=== PATIENT | female | born 1970 | race Caucasian/White ===

== ENCOUNTER 2017-12-17 12:42 | Emergency (ER) | payer SELFPAY ==
[2017-12-17 12:45] VITALS: BP 158/75; PULSE 78; RESP 14; TEMP 36.4; O2SAT 95
--- NOTE | 2017-12-17 13:03 | DI.RAD.S_ITS ---
PROCEDURE: XR ANKLE LT MIN 3V INDICATIONS: Pt in ED waiting room. fall, ++ swelling Left ankle. TECHNIQUE: 3 views of the ankle were acquired. COMPARISON: None. FINDINGS: Bones: No dislocations. Ankle mortise is normally aligned. No suspicious bony lesions. There is a diagonal lateral malleolar fracture through the distal metadiaphyseal junction best seen on the lateral view Soft tissues: No tibiotalar joint effusion. Achilles tendon appears normal. IMPRESSION: A high ankle fracture seen on the lateral view best is present, and a medial or posterior malleolar fracture is not found. The fracture present is only slightly displaced but extends over a craniocaudad length of approximately 5 cm. Dictated by: Kevni Barrios M.D. on 12/17/2017 at 14:17 Approved by: Kevin Barrios M.D. on 12/17/2017 at 14:18
[2017-12-17 13:53] VITALS: PULSE 80
--- NOTE | 2017-12-17 14:02 | ED_ITS ---
HPI - Extremity Injury (Lower) <SHANITA Bliss - Last Filed: 12/17/17 21:41> General Chief Complaint: Extremity Injury, Lower Stated Complaint: left lower leg injury Time Seen by Provider: 12/17/17 14:00 Source: patient Mode of arrival: wheelchair Limitations: no limitations History of Present Illness HPI Narrative: 46-year-old healthy female that is a nonsmoker here for complaint of left ankle pain. She states she was out hiking this morning when she slipped causing her to rolled her left ankle. She states she felt a pop in her left ankle. She states that she has difficulty and weight-bearing after injury due to pain. She denies any other injuries or complaints. Pain is limited to the lateral ankle. She reports having some swelling and bruising to the area. MD complaint: ankle injury Related Data Previous Rx's Medication Instructions Recorded hydrocodone-acetaminophen [Steedman] 1 tab PO Q4-6H PRN #10 tab 12/17/17 Allergies Allergy/AdvReac Type Severity Reaction Status Date / Time No Known Drug Allergies Allergy Verified 12/17/17 13:08 Review of Systems <SHANITA Bliss - Last Filed: 12/17/17 21:41> Constitutional Denies chills, Denies fever(s), Denies lethargy and Denies weakness Eyes Denies change in vision, Denies eye discharge, Denies irritation and Denies loss of vision ENT Ears, Nose, Mouth, and Throat: Denies change in voice, Denies neck pain and Denies sore throat Cardiovascular Denies chest pain, Denies irregular heart rhythm, Denies lightheadedness, Denies palpitations, Denies dyspnea, Denies dyspnea on exertion and Denies orthopnea Respiratory Denies cough, Denies dyspnea, Denies dyspnea on exertion and Denies wheezing Gastrointestinal Gastrointestinal: Denies abdominal pain, Denies change in bowel habits, Denies diarrhea, Denies nausea and Denies vomiting Genitourinary Denies hematuria, Denies flank pain, Denies urinary incontinence and Denies urinary urgency Musculoskeletal Denies neck pain Comments: Left ankle pain Integumentary/Breasts Denies pruritus, Denies erythema, Denies rash and Denies wounds Neurologic Denies confusion, Denies loss of vision and Denies weakness Psychiatric Denies anxiety, Denies confusion, Denies depression, Denies homicidal ideation and Denies suicidal ideation Endocrine Denies palpitations Hematologic/Lymphatic Denies easy bruising Allergic/Immunologic Denies wheezing Exam <SHANITA Bliss - Last Filed: 12/17/17 21:41> Initial Vital Signs Initial Vital Signs: Vital Signs Temperature 97.6 F 12/17/17 12:45 Pulse Rate 78 12/17/17 12:45 Respiratory Rate 14 12/17/17 12:45 Blood Pressure 158/75 H 12/17/17 12:45 Pulse Oximetry 95 12/17/17 12:45 Const General: cooperative and well developed Nutritional Appearance: well nourished Orientation: alert, awake, oriented x3 and not confused HENNV Mouth: oral mucosae normal and moist mucous membranes Eyes Conjunctivae: conjunctivae normal Sclera: sclerae normal Pupils: PERRL EOM: EOM intact bilaterally Neck Neck: normal visual inspection, trachea midline, No lymphadenopathy, No midline deformity and No JVD Lymphatic: No lymphedema Resp Effort & Inspection: normal respiratory effort, able to speak in complete sentences, no respiratory distress and no use of accessory muscles Auscultation: clear to auscultation bilaterally, no rales, no rhonchi and no wheezes Cardio Rate: regular rate Rhythm: regular rhythm Heart Sounds: no click, no gallops, no murmurs and no rubs Pulses: normal peripheral pulses Skin General: no rashes or lesions noted, No jaundice and No petechiae Neuro General: alert, oriented x3 and no focal motor deficits Speech: speech normal Extrem Other: Swelling and ecchymosis to the lateral malleolus of the left ankle. Distal sensation is intact. Distal range of motion is intact. Distal cap refill less than 2 sec. <Radha Sapp DO - Last Filed: 12/18/17 10:51> Initial Vital Signs Initial Vital Signs: Vital Signs Temperature 97.6 F 12/17/17 12:45 Pulse Rate 78 12/17/17 12:45 Respiratory Rate 14 12/17/17 12:45 Blood Pressure 158/75 H 12/17/17 12:45 Pulse Oximetry 95 12/17/17 12:45 Course <SHANITA Bliss - Last Filed: 12/17/17 21:41> Orders Ordered: Discontinued Medications Hydrocodone Bitart/Acetaminophen (Steedman 5/325) 1 tab PO NOW ONE Stop: 12/17/17 14:57 Last Admin: 12/17/17 15:16 Dose: 1 tab Hydrocodone Bitart/Acetaminophen (Vicodin Prepack) 1 bottle MISC SEEINSTR ONE Stop: 12/17/17 18:36 Last Admin: 12/17/17 19:16 Dose: 1 bottle Hydromorphone HCl (Dilaudid) 0.5 mg IV NOW ONE Stop: 12/17/17 14:55 Last Admin: 12/17/17 17:17 Dose: Not Given Vital Signs - 8 hr 12/17/17 13:53 12/17/17 17:33 12/17/17 19:45 Pulse Rate 72 74 Pulse Rate [Left Dorsalis Pedis] 80 Respiratory Rate 18 16 Blood Pressure 117/68 Blood Pressure [Left Arm] 110/72 Pulse Oximetry 100 99 <Radha Sapp DO - Last Filed: 12/18/17 10:51> Orders Ordered: Discontinued Medications Hydrocodone Bitart/Acetaminophen (Steedman 5/325) 1 tab PO NOW ONE Stop: 12/17/17 14:57 Last Admin: 12/17/17 15:16 Dose: 1 tab Hydrocodone Bitart/Acetaminophen (Vicodin Prepack) 1 bottle MISC SEEINSTR ONE Stop: 12/17/17 18:36 Last Admin: 12/17/17 19:16 Dose: 1 bottle Hydromorphone HCl (Dilaudid) 0.5 mg IV NOW ONE Stop: 12/17/17 14:55 Last Admin: 12/17/17 17:17 Dose: Not Given Vital Signs - 8 hr 12/17/17 13:53 12/17/17 17:33 12/17/17 19:45 Pulse Rate 72 74 Pulse Rate [Left Dorsalis Pedis] 80 Respiratory Rate 18 16 Blood Pressure 117/68 Blood Pressure [Left Arm] 110/72 Pulse Oximetry 100 99 MDM - Extremity Injury (Lower) <SHANITA Bliss - Last Filed: 12/17/17 21:41> Imaging Data tib fib: Radiologist's impression: [address] [address] XRay Report Addendum Patient: Laura MotaeMR#: [id number] : 1970Acct:[id number] Age/Sex: 46 / FDate of Service: 12/17/17 Loc: ED Accession Number: [id number] Procedure: XR tibia fibula LT 2V Ordering Provider: Josias Connell ADDENDUM This report includes an Addendum and supersedes previous reports for this exam. PROCEDURE: XR TIBIA FIBULA RT 2V INDICATIONS: high ankle fracture TECHNIQUE: 2 views of the tibia and fibula were acquired. COMPARISON: None. FINDINGS: Bones: No previously undiagnosed fractures or dislocations. No suspicious bony lesions. The diagonal fracture through the distal metadiaphyseal junction of the left fibula is again seen, and no medial malleolar fracture is found but the study definitely allows visualization of a thin posterior malleolar fracture not detected on prior ankle plain film imaging Soft tissues: No suspicious soft tissue calcifications or masses. IMPRESSION: Definite new diagnosis of a thin posterior malleolar fracture involving the distal tibia, in addition to the long diagonal fracture involving the distal fibula. A medial malleolar fracture is not found. Therefore a bimalleolar fracture appears present. Dictated by: Kevin Barrios M.D. on 12/17/2017 at 17:31 Approved by: Kevin Barrios M.D. on 12/17/2017 at 17:33 ADDENDUM: Correction of voice machine operator hop picker error in the impression section. Dictated by: Kevin Barrios M.D. on 12/17/2017 at 17:35 Approved by: Kevin Barrios M.D. on 12/17/2017 at 17:36 Addendum Dictated By:Kevin Barrios MD Addendum Signed By: Addendum Cosigned By: DD/ TD/TT: 12/17/17 PROCEDURE: XR TIBIA FIBULA RT 2V INDICATIONS: high ankle fracture TECHNIQUE: 2 views of the tibia and fibula were acquired. COMPARISON: None. FINDINGS: Bones: No previously undiagnosed fractures or dislocations. No suspicious bony lesions. The diagonal fracture through the distal metadiaphyseal junction of the left fibula is again seen, and no medial malleolar fracture is found but the study definitely allows visualization of a thin posterior malleolar fracture not detected on prior ankle plain film imaging Soft tissues: No suspicious soft tissue calcifications or masses. IMPRESSION: Definite new diagnosis of a thin posterior malleolar fracture involving the distal tibia, in addition to the long diagonal fracture involving the distal fibula. A medial malleolar fracture is not found. Therefore a bimalleolar fracture appears present. Dominant [place] Dictated by: Kevin Barrios M.D. on 12/17/2017 at 17:31 Approved by: Kevin Barrios M.D. on 12/17/2017 at 17:33 RT ankle: Radiologist's impression: [address] [address] XRay Report Signed Patient: Laura MotaeMR#: [id number] : 1970Acct:[id number] Age/Sex: 46 / FDate of Service: 12/17/17 Loc: ED Accession Number: [id number] Procedure: XR ankle LT min 3V Ordering Provider: Radha Sapp D.O. PROCEDURE: XR ANKLE LT MIN 3V INDICATIONS: Pt in ED waiting room. fall, ++ swelling Left ankle. TECHNIQUE: 3 views of the ankle were acquired. COMPARISON: None. FINDINGS: Bones: No dislocations. Ankle mortise is normally aligned. No suspicious bony lesions. There is a diagonal lateral malleolar fracture through the distal metadiaphyseal junction best seen on the lateral view Soft tissues: No tibiotalar joint effusion. Achilles tendon appears normal. IMPRESSION: A high ankle fracture seen on the lateral view best is present, and a medial or posterior malleolar fracture is not found. The fracture present is only slightly displaced but extends over a craniocaudad length of approximately 5 cm. Dictated by: Kevin Barrios M.D. on 12/17/2017 at 14:17 Approved by: Kevin Barrios M.D. on 12/17/2017 at 14:18 MDM Narrative Medical decision making narrative: x-ray of the left ankle shows a high ankle to the lateral malleolus. x-ray of the tib-fib region shows a posterior medial malleolus fracture as well. Ankle mortise is aligned normally. She is placed in a splint for comfort and support and given crutches for nonweightbearing. She is referred Orthopedics for further evaluation. Patient to call the number Tuesday to schedule follow-up appointment. [id number] ibuprofen as needed for any discomfort. His Steedman is prescibed for any breakthrough pain. Ice and elevation help with swelling. For any worsening symptoms return emergency room Discharge Plan Departure Patient Disposition: Home Clinical Impression: Ankle fracture, left Discharge Date/Time: 12/17/17 19:45 Interventions: ED Discharge Assessment Last Done: 12/17/17 19:45 Instructions: DI for Ankle Fracture Activity Restrictions/Additional Instructions: x-ray of the left ankle shows a fracture to both the lateral and medial malleolus. you are placed in a splint for comfort and support use as directed. Use crutches as instructed for nonweightbearing. Use ice and elevation help with any swelling. Use [id number] ibuprofen/naproxen as needed for any discomfort. Small amount of Steedman was provided for breakthrough pain also use as directed no driving while on the Steedman. Follow up with Orthopedics call the number of number provided schedule follow-up appointment this week. For any worsening symptoms return to the emergency room. Prescriptions: New hydrocodone-acetaminophen [Steedman] 5-325 mg tablet 1 tab PO Q4-6H PRN (Reason: pain) Qty: 10 RF: 0 Referrals: Ghada Garcia MD [Physician] - <Radha Sapp DO - Last Filed: 12/18/17 10:51> Cosign ED Attending Cosignature Attestation: I was immediately available in the department for consultation. This documentation has been reviewed and I agree with assessment and plan, images of ankle were viewed by myself and Dr. Garcia also reviewed images. Plan reviewed with Dr. Garcia as well. Supervised by Radha Sapp DO
[2017-12-17] MEDS: HYDROCODONE/ACET 5/325 TABLET 1 TAB PO (15:16)
--- NOTE | 2017-12-17 16:28 | DI.RAD.S_ITS ---
PROCEDURE: XR TIBIA FIBULA RT 2V INDICATIONS: high ankle fracture TECHNIQUE: 2 views of the tibia and fibula were acquired. COMPARISON: None. FINDINGS: Bones: No previously undiagnosed fractures or dislocations. No suspicious bony lesions. The diagonal fracture through the distal metadiaphyseal junction of the left fibula is again seen, and no medial malleolar fracture is found but the study definitely allows visualization of a thin posterior malleolar fracture not detected on prior ankle plain film imaging Soft tissues: No suspicious soft tissue calcifications or masses. IMPRESSION: Definite new diagnosis of a thin posterior malleolar fracture involving the distal tibia, in addition to the long diagonal fracture involving the distal fibula. A medial malleolar fracture is not found. Therefore a bimalleolar fracture appears present. Dominant oh Dictated by: Kevin Barrios M.D. on 12/17/2017 at 17:31 Approved by: Kevin Barrios M.D. on 12/17/2017 at 17:33
--- NOTE | 2017-12-17 17:04 | PC.NURSE ---
post posterior and stirrup splint
[2017-12-17 17:33] VITALS: BP 110/72; PULSE 72; RESP 18; O2SAT 100
[2017-12-17] MEDS: HYDROCODONE/ACET 5/325 PREPACK 1 BOTTLE MISC (19:16)
[2017-12-17 19:45] VITALS: BP 117/68; PULSE 74; RESP 16; O2SAT 99
== END 2017-12-17 19:45 | disposition home or self-care (01) ==
PROVIDERS: Emergency Provider Nurse Practitioner Family
DX: S82.892A Other fracture of left lower leg, initial encounter for closed fracture (principal); W01.0XXA Fall on same level from slipping, tripping and stumbling without subsequent striking against object, initial encounter; Y93.01 Activity, walking, marching and hiking
CPT/HCPCS: 29515; 73590; 73610; 99282; 99283

== ENCOUNTER 2018-12-17 12:48 | Emergency (ER) | payer SELFPAY ==
[2018-12-17 12:59] VITALS: BP 139/87; PULSE 77; RESP 16; TEMP 36.9; O2SAT 99
--- NOTE | 2018-12-17 12:59 | DI.RAD.S_ITS ---
PROCEDURE: XR CHEST 1V INDICATIONS: chest pain TECHNIQUE: One view of the chest was acquired. COMPARISON: None. FINDINGS: Surgical changes and devices: None. Lungs and pleura: An incomplete inspiratory result is noted, causing a crowded appearance to the lung markings. No focal infiltrates are seen. No pneumothorax or significant pleural effusions are seen. Mediastinum: Mediastinal contours appear normal. Heart size is normal. Bones and chest wall: No suspicious bony lesions. Overlying soft tissues appear unremarkable. IMPRESSION: Portable chest within normal limits. Dictated by: Orville Ricci M.D. on 12/17/2018 at 12:31 Approved by: Orville Ricci M.D. on 12/17/2018 at 12:32
[2018-12-17 13:05] VITALS: BP 129/79; PULSE 79; RESP 18; O2SAT 98
[2018-12-17 13:12] LABS: Add Manual Diff / Slide Review NO; Basophils Absolute Auto 0 /uL (0-100); Basophils Percent Auto 0.4 % (0-2); Eosinophils Absolute Auto 200 /uL (0-450); Eosinophils Percent Auto 2.8 % (2-4); Hematocrit 39.4 % (36-46); Hemoglobin 13.4 g/dL (12.0-16.0); Lymphocytes Absolute Auto 2100 /uL (1100-4500); Lymphocytes Percent Auto 28.3 % (25-40); Mean Corpuscular HGB Conc 33.9 % (30-36); Mean Corpuscular Hemoglobin 29.5 PG (26-34); Mean Corpuscular Volume 87.1 fL (80-100); Monocytes Absolute Auto 500 /uL (0-900); Neutrophils Absolute Auto 4600 /uL (1500-7000); Neutrophils Percent Auto 61.5 % (50-75); Platelet Count 247 X10^3/uL (150-400); Red Blood Cell Count 4.52 X10^6/uL (4.0-5.2); Red Cell Distribution Width 15.1 % (11.6-14.8); White Blood Cell Count 7.5 X10^3/uL (4.5-11.0)
[2018-12-17 13:15] LABS: Prothrombin Time 12.1 SECONDS (10.1-12.7)
[2018-12-17 13:18] LABS: PTT Partial Thromboplastin Tim 32 SECONDS (26.4-36.2)
[2018-12-17 13:19] LABS: Alanine Aminotransferase 24 IU/L (9-52); Albumin 4.7 g/dL (3.5-5.0); Albumin Globulin Ratio 1.6 (1.0-2.8); Alkaline Phosphatase 57 U/L (38-126); Aspartate Aminotransferase 22 IU/L (14-36); Bilirubin Total 0.6 mg/dL (0.2-1.3); Blood Urea Nitrogen 15 mg/dL (7-17); Calcium 9.3 mg/dL (8.4-10.2); Carbon Dioxide 22 mmol/L (22-32); Chloride 108 mmol/L (98-107); Creatine Kinase 50 U/L (30-135); Estimated Glomerular Filt Rate > 60.0 mL/min (>60); Globulin 2.9 g/dL (1.7-4.1); Glucose 106 mg/dL (70-100); HEMOLYSIS < 15 (0-50); Lipase 62 U/L (23-300); Potassium 3.9 mmol/L (3.4-5.1); Sodium 139 mmol/L (137-145); Total Protein 7.6 g/dL (6.3-8.2)
[2018-12-17 13:32] LABS: Troponin I < 0.012 ng/mL (0.01-0.034)
[2018-12-17 13:34] LABS: D Dimer < 200 ng/mL (<230)
[2018-12-17] MEDS: PANTOPRAZOLE 40 MG VIAL IV (13:38)
[2018-12-17] MEDS: ONDANSETRON 4 MG/2 ML INJ IV (13:38)
[2018-12-17] MEDS: MAG HYDROX/ALUMINUM/SIMETH SUS 20 ML, LIDOCAINE VISCOUS 2% 15 ML PO (13:39)
[2018-12-17 14:00] VITALS: BP 118/69; PULSE 73; PULSE 75; RESP 12; RESP 16; O2SAT 100; O2SAT 99
--- NOTE | 2018-12-17 14:23 | ED.CHESTPAIN ---
HPI - Chest Pain <CARIDAD ChurchillP - Last Filed: 12/17/18 23:40> General Chief Complaint: Chest Pain Stated Complaint: Chest pain Time Seen by Provider: 12/17/18 12:57 Source: patient Mode of arrival: Ambulatory Limitations: no limitations History of Present Illness HPI narrative: This is a 47 year female, nonsmoker, who presents to ED with chief complain of nonradiating left chest sharp pain, ice pick, with deep inhalation and certain movements. She initially noticed pain 2 nights ago after she had several alcoholic drinks and [place] food and the discomfort woke her up from her sleep when she rolled over in bed. Patient denies breathing difficulty, nausea or vomiting, cold sweats, dizziness, or previous cardiac history. Patient had URI symptoms for last 2 weeks and going through stress in her life, loss of her sister from suicide, and got concerned and is here for an evaluation. Patient states she takes Tums daily for similar discomfort in the past. She also had taken Mucinex for cold symptoms thought this may help her with her left-sided sharp chest discomfort. Patient denies history of blood clots, long distance travel, estrogen hormone replacement or control pill therapy. Patient is not aware of strong cardiac history in family. Related Data Previous Rx's Medication Instructions Recorded hydrocodone-acetaminophen [[place]] 1 tab PO Q4-6H PRN #10 tab 12/17/17 omeprazole 20 mg PO DAILY #14 cap 12/17/18 Allergies Allergy/AdvReac Type Severity Reaction Status Date / Time No Known Drug Allergies Allergy Verified 12/17/17 13:08 Review of Systems <SHANITA Churchill - Last Filed: 12/17/18 23:40> Review of Systems Narrative: General: Denies fever, chills, fatigue, malaise, sweats. HEENT: Denies sinus pain, ear pain, sore throat, difficulty swallowing, dizziness. Respiratory: Denies dyspnea, cough, wheezing, hemoptysis, sputum. Cardiovascular: See HPI Gastrointestinal: Denies nausea, vomiting, abdominal pain, diarrhea, constipation, melena. : Denies dysuria, frequency, incontinence, hematuria, urinary retention. Musculoskeletal: Denies weakness, joint pain or bony pain. Skin: Denies rash, skin lesions, or other. Neurologic: Denies weakness, headache, numbness, change in speech, confusion, seizures, incoordination. Psychiatric: No concerning psychosocial issues. 12-point review of systems is negative except for those stated above. Patient History <SHANITA Churchill - Last Filed: 12/17/18 23:40> Medical History Varicose vein of leg (Acute) Surgical History History of tubal ligation (Acute) alcohol intake frequency: 0-2 drinks per day Substance Use Type: does not use Exam <SHANITA Churchill - Last Filed: 12/17/18 23:40> Narrative Exam Narrative: GEN: Alert, oriented x 3, well appearing and nourished, and in no acute distress. Head: Normal cephalic, atraumatic. No scalp or temporal tenderness, palpable mass or rash. EYES: Pupils are equal, round, and reactive to light and accommodation. Extraocular muscles are intact bilaterally. There is no subconjunctival hemorrhage, exudate and sclera non-icteric. ENT: Bilateral auditory canals and tympanic membranes clear. Hearing grossly intact. Nose without bleeding, purulent discharge or deviation. Facial sinuses nontender to palpate. Mucous membrane moist, no mucosal lesion. Throat without erythema, tonsillar hypertrophy or exudate. Uvula in midline, airway patent. Neck: Trachea in midline. No JVD, non-tender without lymphadenopathy. No masses or thyroid megaly. Supple, non-tender and no meningeal signs. CARDIAC: Normal regular rate and rhythm without murmurs, gallops, or rubs. No chest wall tenderness. No peripheral edema, cyanosis or pallor. Capillary refill is less than 2 seconds. RESPIRATORY: Lungs are clear to auscultate bilaterally. No cough, wheezes, rales, or rhonchi. No stridor, respiratory distress, increase work of breathing, or accessary muscle used. ABD: Abdomen soft, nontender and non-distended. No guarding or rebound tenderness to palpate. Bowel sounds are normal in all 4 quadrants. There is no palpable masses or organomegaly. EXT: Full painless ROM of all extremities with no loss of sensation, strength, effusion or edema. SKIN: Warm, dry, normal color for patient. No erythema, lesions or rash over visible areas. BACK: Nontender without deformity or crepitance. No flank tenderness. NEUROLOGICAL: Alert and oriented to place, time and person. Sensation and motor function intact bilaterally. No facial droops, dysphasia. PSYCHIATRIC: Good judgement and reason, without hallucinations, abnormal affect or abnormal behaviors during the examination. Patient became tearful when talked about sister. Patient is not suicidal. Initial Vital Signs Initial Vital Signs: Vital Signs Temperature 98.5 F 12/17/18 12:59 Pulse Rate 77 12/17/18 12:59 Respiratory Rate 16 12/17/18 12:59 Blood Pressure 139/87 12/17/18 12:59 Pulse Oximetry 99 12/17/18 12:59 <Radha Sapp DO - Last Filed: 12/22/18 18:08> Initial Vital Signs Initial Vital Signs: Vital Signs Temperature 98.5 F 12/17/18 12:59 Pulse Rate 77 12/17/18 12:59 Respiratory Rate 16 12/17/18 12:59 Blood Pressure 139/87 12/17/18 12:59 Pulse Oximetry 99 12/17/18 12:59 Scores <SHANITA Churchill - Last Filed: 12/17/18 23:40> GCS [place] coma scale eye opening: Spontaneous [place] coma scale verbal response: Orientated [place] coma scale motor response: Obey commands [place] coma scale total score: 15 HEART Score Heart Score history: Slightly Suspicious Heart Score EKG: Normal Heart Score Age: 45-64 years old Heart Score risk factors: No known risk factors Heart Score troponin: < or = to normal limit Heart Score Total: 1 Course <SHANITA Churchill - Last Filed: 12/17/18 23:40> Orders Ordered: Discontinued Medications Al Hydrox/Mg Hydrox/Simethicone 20 ml/ Lidocaine HCl 15 ml 0 ml PO NOW ONE Stop: 12/17/18 13:23 Last Admin: 12/17/18 13:39 Dose: 35 ml Documented by: RAMON Ondansetron HCl (Zofran) 4 mg IV NOW ONE Stop: 12/17/18 13:23 Last Admin: 12/17/18 13:38 Dose: 4 mg Documented by: RAMON Pantoprazole Sodium (Protonix) 40 mg IV NOW ONE Stop: 12/17/18 13:23 Last Admin: 12/17/18 13:38 Dose: 40 mg Documented by: RAMON Vital Signs Vital signs: Vital Signs - 8 hr 12/17/18 12:59 12/17/18 13:05 12/17/18 14:00 Temperature 98.5 F Pulse Rate 77 79 75 Respiratory Rate 16 18 12 Blood Pressure 139/87 Blood Pressure [Right Arm] 129/79 118/69 Pulse Oximetry 99 98 99 <Radha Sapp DO - Last Filed: 12/22/18 18:08> Orders Ordered: Discontinued Medications Al Hydrox/Mg Hydrox/Simethicone 20 ml/ Lidocaine HCl 15 ml 0 ml PO NOW ONE Stop: 12/17/18 13:23 Last Admin: 12/17/18 13:39 Dose: 35 ml Documented by: RAMON Ondansetron HCl (Zofran) 4 mg IV NOW ONE Stop: 12/17/18 13:23 Last Admin: 12/17/18 13:38 Dose: 4 mg Documented by: RAMON Pantoprazole Sodium (Protonix) 40 mg IV NOW ONE Stop: 12/17/18 13:23 Last Admin: 12/17/18 13:38 Dose: 40 mg Documented by: RAMON Vital Signs Vital signs: Vital Signs - 8 hr 12/17/18 12:59 12/17/18 13:05 12/17/18 14:00 Temperature 98.5 F Pulse Rate 77 79 75 Respiratory Rate 16 18 12 Blood Pressure 139/87 Blood Pressure [Right Arm] 129/79 118/69 Pulse Oximetry 99 98 99 MDM - Chest Pain <SHANITA Churchill - Last Filed: 12/17/18 23:40> Differential Diagnosis Differential diagnosis: Likely stable angina, atypical chest pain, costochondritis and other (GERD, pulmonary embolism, pneumonia) Medical Records Data Attestation: I reviewed the patient's medical records. Lab Data Attestation: I reviewed the patient's lab results. Result diagrams: 12/17/18 13:00 12/17/18 13:00 Labs: Lab Results 12/17/18 12/17/18 12/17/18 Range/Units 13:00 13:00 13:00 WBC 7.5 (4.5-11.0) X10^3/uL RBC 4.52 (4.0-5.2) X10^6/uL Hgb 13.4 (12.0-16.0) g/dL Hct 39.4 (36-46) % MCV 87.1 (80-100) fL MCH 29.5 (26-34) PG MCHC 33.9 (30-36) % RDW 15.1 H (11.6-14.8) % Plt Count 247 (150-400) X10^3/uL Neut % (Auto) 61.5 (50-75) % Lymph % (Auto) 28.3 (25-40) % [place] % (Auto) 7.0 (3-14) % Eos % (Auto) 2.8 (2-4) % Baso % (Auto) 0.4 (0-2) % Neut # (Auto) 4600 (2159-7426) /uL Lymph # (Auto) 2100 (9430-5175) /uL [place] # (Auto) 500 (0-900) /uL Eos # (Auto) 200 (0-450) /uL Baso # (Auto) 0 (0-100) /uL PT 12.1 (10.1-12.7) SECONDS INR 1.0 (0.9-1.3) APTT 32 (26.4-36.2) SECONDS D-Dimer (<230) ng/mL Sodium 139 (137-145) mmol/L Potassium 3.9 (3.4-5.1) mmol/L Chloride 108 H (98-107) mmol/L Carbon Dioxide 22 (22-32) mmol/L BUN 15 (7-17) mg/dL Creatinine 0.60 (0.52-1.04) mg/dL Estimated GFR > 60.0 (>60) mL/min BUN/Creatinine Ratio 25.0 H (6-22) Glucose 106 H (70-100) mg/dL Calcium 9.3 (8.4-10.2) mg/dL Total Bilirubin 0.6 (0.2-1.3) mg/dL AST 22 (14-36) IU/L ALT 24 (9-52) IU/L Alkaline Phosphatase 57 (38-126) U/L Total Creatine Kinase 50 (30-135) U/L CK-MB (CK-2) TNP CK-MB (CK-2) Rel Index TNP Troponin I < 0.012 (0.01-0.034) ng/mL Total Protein 7.6 (6.3-8.2) g/dL Albumin 4.7 (3.5-5.0) g/dL Globulin 2.9 (1.7-4.1) g/dL Albumin/Globulin Ratio 1.6 (1.0-2.8) Lipase 62 (23-300) U/L 12/17/18 Range/Units 13:00 WBC (4.5-11.0) X10^3/uL RBC (4.0-5.2) X10^6/uL Hgb (12.0-16.0) g/dL Hct (36-46) % MCV (80-100) fL MCH (26-34) PG MCHC (30-36) % RDW (11.6-14.8) % Plt Count (150-400) X10^3/uL Neut % (Auto) (50-75) % Lymph % (Auto) (25-40) % [place] % (Auto) (3-14) % Eos % (Auto) (2-4) % Baso % (Auto) (0-2) % Neut # (Auto) (8432-0752) /uL Lymph # (Auto) (6750-9927) /uL [place] # (Auto) (0-900) /uL Eos # (Auto) (0-450) /uL Baso # (Auto) (0-100) /uL PT (10.1-12.7) SECONDS INR (0.9-1.3) APTT (26.4-36.2) SECONDS D-Dimer < 200 (<230) ng/mL Sodium (137-145) mmol/L Potassium (3.4-5.1) mmol/L Chloride (98-107) mmol/L Carbon Dioxide (22-32) mmol/L BUN (7-17) mg/dL Creatinine (0.52-1.04) mg/dL Estimated GFR (>60) mL/min BUN/Creatinine Ratio (6-22) Glucose (70-100) mg/dL Calcium (8.4-10.2) mg/dL Total Bilirubin (0.2-1.3) mg/dL AST (14-36) IU/L ALT (9-52) IU/L Alkaline Phosphatase (38-126) U/L Total Creatine Kinase (30-135) U/L CK-MB (CK-2) CK-MB (CK-2) Rel Index Troponin I (0.01-0.034) ng/mL Total Protein (6.3-8.2) g/dL Albumin (3.5-5.0) g/dL Globulin (1.7-4.1) g/dL Albumin/Globulin Ratio (1.0-2.8) Lipase (23-300) U/L Imaging Data Chest x-ray: Radiologist's impression: [address] [address] XRay Report Signed Patient: Laura Mota#: [id number] : 1970Acct:[id number] Age/Sex: 47 / FDate of Service: 12/17/18 Loc: ED Accession Number: [id number] Procedure: XR chest 1V Ordering Provider: Radha Sapp D.O. PROCEDURE: XR CHEST 1V INDICATIONS: chest pain TECHNIQUE: One view of the chest was acquired. COMPARISON: None. FINDINGS: Surgical changes and devices: None. Lungs and pleura: An incomplete inspiratory result is noted, causing a crowded appearance to the lung markings. No focal infiltrates are seen. No pneumothorax or significant pleural effusions are seen. Mediastinum: Mediastinal contours appear normal. Heart size is normal. Bones and chest wall: No suspicious bony lesions. Overlying soft tissues appear unremarkable. IMPRESSION: Portable chest within normal limits. Dictated by: Orville Ricci M.D. on 12/17/2018 at 12:31 Approved by: Orville Ricci M.D. on 12/17/2018 at 12:32 ECG Data Attestation: I personally reviewed and interpreted this ECG as follows: Interpretation: Normal sinus rhythm rate at 80. Normal [place]. No ST elevation or depression. MDM Narrative Medical decision making narrative: This is a 47-year-old female who presents to ED with left-sided focalized left-sided sharp chest pain for 2 days which woke patient up from sleep. Patient reports pain is worse with deep inhalation and turning over in bed. Patient also had URI symptoms for 2 weeks with cough which is improving at this time. Patient has no known cardiac history with unsure of cardiac family history. Patient has a history of GERD symptoms and she had several alcoholic drinks and oily food prior going to bed. Patient denied constitutional symptoms or other cardiac-related symptoms. EKG is normal sinus rhythm. Cardiac enzymes were negative including D-dimer and CT test of chest was not done at this time. Chemistry was unremarkable including lipase. Chest x-ray was negative for acute findings. Patient was medicated with GI cocktail, pantoprazole which improved her symptoms. Her chest pain is likely related to GERD symptoms. Patient was discharged home with omeprazole and avoid trigger foods. Return precautions were discussed with the patient. Patient also has a situational stress and advised to seek a counseling therapy. Patient currently does not have primary care physician and [facility] phone number has been provided to seek a primary care physician for follow-up on her chest pain as out patient. Patient verbalized understanding and agrees with the treatment plan. <Radha Sapp, DO - Last Filed: 12/22/18 18:08> Lab Data Labs: Lab Results 12/17/18 12/17/18 12/17/18 Range/Units 13:00 13:00 13:00 WBC 7.5 (4.5-11.0) X10^3/uL RBC 4.52 (4.0-5.2) X10^6/uL Hgb 13.4 (12.0-16.0) g/dL Hct 39.4 (36-46) % MCV 87.1 (80-100) fL MCH 29.5 (26-34) PG MCHC 33.9 (30-36) % RDW 15.1 H (11.6-14.8) % Plt Count 247 (150-400) X10^3/uL Neut % (Auto) 61.5 (50-75) % Lymph % (Auto) 28.3 (25-40) % [place] % (Auto) 7.0 (3-14) % Eos % (Auto) 2.8 (2-4) % Baso % (Auto) 0.4 (0-2) % Neut # (Auto) 4600 (4597-6444) /uL Lymph # (Auto) 2100 (1692-6369) /uL [place] # (Auto) 500 (0-900) /uL Eos # (Auto) 200 (0-450) /uL Baso # (Auto) 0 (0-100) /uL PT 12.1 (10.1-12.7) SECONDS INR 1.0 (0.9-1.3) APTT 32 (26.4-36.2) SECONDS D-Dimer (<230) ng/mL Sodium 139 (137-145) mmol/L Potassium 3.9 (3.4-5.1) mmol/L Chloride 108 H (98-107) mmol/L Carbon Dioxide 22 (22-32) mmol/L BUN 15 (7-17) mg/dL Creatinine 0.60 (0.52-1.04) mg/dL Estimated GFR > 60.0 (>60) mL/min BUN/Creatinine Ratio 25.0 H (6-22) Glucose 106 H (70-100) mg/dL Calcium 9.3 (8.4-10.2) mg/dL Total Bilirubin 0.6 (0.2-1.3) mg/dL AST 22 (14-36) IU/L ALT 24 (9-52) IU/L Alkaline Phosphatase 57 (38-126) U/L Total Creatine Kinase 50 (30-135) U/L CK-MB (CK-2) TNP CK-MB (CK-2) Rel Index TNP Troponin I < 0.012 (0.01-0.034) ng/mL Total Protein 7.6 (6.3-8.2) g/dL Albumin 4.7 (3.5-5.0) g/dL Globulin 2.9 (1.7-4.1) g/dL Albumin/Globulin Ratio 1.6 (1.0-2.8) Lipase 62 (23-300) U/L 12/17/18 Range/Units 13:00 WBC (4.5-11.0) X10^3/uL RBC (4.0-5.2) X10^6/uL Hgb (12.0-16.0) g/dL Hct (36-46) % MCV (80-100) fL MCH (26-34) PG MCHC (30-36) % RDW (11.6-14.8) % Plt Count (150-400) X10^3/uL Neut % (Auto) (50-75) % Lymph % (Auto) (25-40) % [place] % (Auto) (3-14) % Eos % (Auto) (2-4) % Baso % (Auto) (0-2) % Neut # (Auto) (0262-1599) /uL Lymph # (Auto) (5573-2796) /uL [place] # (Auto) (0-900) /uL Eos # (Auto) (0-450) /uL Baso # (Auto) (0-100) /uL PT (10.1-12.7) SECONDS INR (0.9-1.3) APTT (26.4-36.2) SECONDS D-Dimer < 200 (<230) ng/mL Sodium (137-145) mmol/L Potassium (3.4-5.1) mmol/L Chloride (98-107) mmol/L Carbon Dioxide (22-32) mmol/L BUN (7-17) mg/dL Creatinine (0.52-1.04) mg/dL Estimated GFR (>60) mL/min BUN/Creatinine Ratio (6-22) Glucose (70-100) mg/dL Calcium (8.4-10.2) mg/dL Total Bilirubin (0.2-1.3) mg/dL AST (14-36) IU/L ALT (9-52) IU/L Alkaline Phosphatase (38-126) U/L Total Creatine Kinase (30-135) U/L CK-MB (CK-2) CK-MB (CK-2) Rel Index Troponin I (0.01-0.034) ng/mL Total Protein (6.3-8.2) g/dL Albumin (3.5-5.0) g/dL Globulin (1.7-4.1) g/dL Albumin/Globulin Ratio (1.0-2.8) Lipase (23-300) U/L Discharge Plan Departure Patient Disposition: Home Clinical Impression: Atypical chest pain Gastroesophageal reflux disease Qualifiers: Esophagitis presence: esophagitis presence not specified Qualified Code(s): K21.9 - Gastro-esophageal reflux disease without esophagitis Discharge Date/Time: 12/17/18 14:30 Instructions: DI for Gastroesophageal Reflux Disease (GERD), DI for Atypical Chest Pain Activity Restrictions/Additional Instructions: You have been diagnosed with [atypical chest pain is likely due to GERD. EKG, chest x-ray, blood tests were all unremarkable including cardiac enzymes]. What to do: *Take your medications as directed. Please take omeprazole daily next couple of weeks. Please avoid trigger foods such as alcohol, right foot, acidic foods, caffeine, chocolate and stay up a couple of hours after you eat. *Follow up with your primary care provider in 2-3 days, call for an appointment. Let them know you were seen in the ED and that we asked you to be seen in follow up. *Return to ED if you have any new, worsening, or concerning symptoms, such as [worsening pain, different type of chest pain, breathing difficulty, cold sweats, unable to tolerate fluids, or any acute concerns]. Prescriptions: New omeprazole 20 mg capsule,delayed release(DR/EC) 20 mg PO DAILY Qty: 14 RF: 0 No Action hydrocodone-acetaminophen [[place]] 5-325 mg tablet 1 tab PO Q4-6H PRN (Reason: pain) Qty: 10 RF: 0 Referrals: [facility] [Outside]
== END 2018-12-17 14:30 | disposition home or self-care (01) ==
PROVIDERS: Emergency Medicine; Emergency Provider Nurse Practitioner Family
DX: R07.89 Other chest pain (principal); K21.9 Gastro-esophageal reflux disease without esophagitis
CPT/HCPCS: 36415; 71045; 80053; 82550; 83690; 84484; 85025; 85379; 85610; 85730; 93005; 93010; 96374; 96375; 99283; 99285; C9113; J2405